=== PATIENT | male | born 1970 | race Caucasian/White ===

== ENCOUNTER 2017-08-03 10:35 | Emergency (ER) | payer OTHER ==
[~2017-08-03] VITALS: Ht 182.9 cm; Wt 98.1 kg
[~2017-08-03 10:35] MED LIST: AMBIEN10 MG PO; Ambien PO; CIPRO500 MG PO; FLAGYL500 MG PO; LYRICA75 MG PO; METAMUCIL POWD798 GM PO; Metamucil Packet PO; NASONEX17 GM NS; PAXIL20 MG PO; PRILOSEC20 MG PO; PROSCAR5 MG PO; PriLOSEC PO; Proscar PO
[2017-08-03 11:16] LABS: HEMATOCRIT 42.3 % (38.0-50.0); MCH 31.2 PG (29.0-34.0); MCHC 35.5 G/DL (30.0-36.0); MCV 87.9 FL (86-99); PLATELET COUNT 175 K/uL (156-360); RED BLOOD COUNT 4.81 M/uL (4.00-5.50); WHITE BLOOD COUNT 12.8 K/uL (4.1-10.2)
[2017-08-03 11:27] LABS: ALBUMIN 3.9 g/dL (3.2-4.8)
[2017-08-03 11:28] LABS: CHLORIDE 102 mEq/L (99-109); POTASSIUM 4.4 mEq/L (3.7-5.4); SODIUM 135 mEq/L (136-147)
[2017-08-03 11:30] LABS: GLUCOSE 100 mg/dL (70-99); TOTAL PROTEIN 7.1 g/dL (6.4-8.3)
[2017-08-03 11:32] LABS: TOTAL BILIRUBIN 0.4 mg/dL (0.0-1.0)
[2017-08-03 11:33] LABS: ALKALINE PHOSPHATASE 102 IU/L (3-129)
[2017-08-03 11:34] LABS: CREATININE 0.9 mg/dL (0.6-1.3); GFR ESTIMATE (CALCULATED) > 59 mL/min/ (58.99-99999)
[2017-08-03 11:35] LABS: AST (GOT) 22 IU/L (2-34); UREA NITROGEN (BUN) 14 mg/dL (9-23)
[2017-08-03 11:36] LABS: ALT (GPT) 16 IU/L (3-49)
[2017-08-03 11:37] LABS: LIPASE 20 U/L (1.0-51.0)
[2017-08-03] MEDS ORDERED: PERCOCET 5/31 TABLET PO (14:11)
[2017-08-03] MEDS ORDERED: MOTRIN600 MG PO (14:11)
[2017-08-03 14:49] VITALS: BP 140/83
== END 2017-08-03 14:49 | disposition home or self-care (01) ==
LOC: EME 10:35
PROVIDERS: Physician Assistant
DX: S22.42XA Multiple fractures of ribs, left side, initial encounter for closed fracture (principal); S27.2XXA Traumatic hemopneumothorax, initial encounter; W01.10XA Fall on same level from slipping, tripping and stumbling with subsequent striking against unspecified object, initial encounter; K21.9 Gastro-esophageal reflux disease without esophagitis; Z87.891 Personal history of nicotine dependence
CPT/HCPCS: 71020; 71260; 80053; 83690; 85027; 86850; 86900; 86901; 99281; 99285; J1885; J3010; J7030